=== PATIENT | male | born 1970 | race American Indian/Alaskan Native ===

== ENCOUNTER 2017-06-23 08:56 | Outpatient (CLI) | payer MEDICAID ==
[2017-06-23 09:58] LABS: Albumin 3.8 g/dL (3.9-5); BUN/Creatinine Ratio 7.64; Calcium 8.5 mg/dL (8.4-10.2); Chloride 90.7 mmol/L (98-107); Phosphorous 4.1 mg/dL (2.5-4.5); Potassium 3.5 mmol/L (3.6-5.0)
== END 2017-06-23 08:57 | disposition home or self-care (01) ==
LOC: LAB 08:56
PROVIDERS: ATTEND Internal Medicine Nephrology
DX: I10 Essential (primary) hypertension (principal); E87.1 Hypo-osmolality and hyponatremia; R94.4 Abnormal results of kidney function studies; F17.200 Nicotine dependence, unspecified, uncomplicated
CPT/HCPCS: 36415; 80048; 82040; 82565; 82570; 82575; 84100; 84156

== ENCOUNTER 2018-02-19 10:35 | Observation (INO) | payer MEDICAID ==
[2018-02-19 11:53] LABS: Basophils % (Auto) 0.2 % (0.0-1.8); Eosinophils # (Auto) 0.1 K/mm3 (0.0-0.4); Eosinophils % (Auto) 1.2 % (0.0-4.3); Hematocrit 43.3 % (35.5-45.6); Hemoglobin 14.3 gm/dl (11.8-15.2); Lymphocytes % (Auto) 14.7 % (13.4-35.0); Mean Corpuscular HGB Conc 33 % (32-34); Mean Corpuscular Hemoglobin 29 pg (28-32); Mean Corpuscular Volume 87 fl (84-94); Monocytes # (Auto) 0.4 K/mm3 (0.0-0.8); Monocytes % (Auto) 6.8 % (0.0-7.3); Platelet Count 297 K/mm3 (140-440); Red Blood Count 4.96 M/mm3 (3.65-5.03)
[2018-02-19 12:08] LABS: Albumin 3.8 g/dL (3.9-5); Calcium 8.7 mg/dL (8.4-10.2)
[2018-02-19 12:19] LABS: INR 0.86 (0.87-1.13)
[2018-02-19 13:32] LABS: Bilirubin,Urine NEG (Negative); Blood,Urine NEG (Negative); Color,Urine Yellow (Yellow); Hyaline Casts,Urine 3 /LPF; Mucus,Urine FEW /HPF; Protein,Urine <15 mg/dL mg/dL (Negative); Urobilinogen,Urine < 2.0 mg/dL (<2.0)
--- NOTE | 2018-02-19 13:34 | XRay Report ---
AP CHEST: HISTORY: chest pain AP view of the chest demonstrates a normal mediastinal and cardiac contour with clear lungs and normal bony and soft tissue structures. IMPRESSION: Unremarkable AP chest. No significant change since 02/19/16.
[2018-02-19 13:44] LABS: WBC,Urine < 1.0 /HPF (0.0-6.0)
--- NOTE | 2018-02-19 13:50 | Emergency Department Report ---
ED Chest Pain HPI - General Chief Complaint: Abdominal Pain Stated Complaint: NAUSEA/VOMITING Time Seen by Provider: 02/19/18 11:15 Source: patient, EMS Mode of arrival: Stretcher Limitations: No Limitations, Physical Limitation - History of Present Illness Initial Comments: 47-year-old adult past medical history of hypertension comes in complaining of chest pain. Patient was at [facility] and started to have some nausea vomiting and chest pain . Patient's under no acute distress. Pt denies any nausea vomiting shortness of breath. Denies any fever or chills. MD Complaint: chest pain -: Gradual Onset: during exertion Pain Location: left chest Pain Radiation: none Severity: mild Severity scale (0 -10): 1 Quality: aching Consistency: now resolved Improves With: nothing Worsens With: nothing re: denies: nausea, vomting, diaphoresis, dyspnea, sense of impending doom Other Symptoms: denies: cough, fever, syncope, rash, acid taste in mouth, leg swelling, palpitations, burping, other - Related Data Home Medications Medication Instructions Recorded Confirmed Last Taken AtorvaSTATin [Lipitor] 20 mg PO QHS 02/19/18 02/19/18 02/19/18 Carvedilol [Coreg] 6.25 mg PO BID 02/19/18 02/19/18 02/19/18 Losartan [Cozaar] 50 mg PO QDAY 02/19/18 02/19/18 02/19/18 Triamter/Hctz 37.5-25 mg 1 tab PO QDAY 02/19/18 02/19/18 02/19/18 [Maxzide-25] Allergies Allergy/AdvReac Type Severity Reaction Status Date / Time ibuprofen [From Motrin] Allergy Vomiting Verified 02/19/16 11:35 Heart Score - HEART Score History: Slightly suspicious EKG: Non-specific Age: 45-65 Risk factors: 1-2 risk factors Troponin: < normal limit HEART Score: 3 ED Review of Systems ROS: Stated complaint: NAUSEA/VOMITING Other details as noted in HPI Constitutional: denies: chills, fever Eyes: denies: eye pain, eye discharge, vision change ENT: denies: ear pain, throat pain Respiratory: denies: cough, shortness of breath, wheezing Cardiovascular: chest pain Endocrine: no symptoms reported Gastrointestinal: denies: abdominal pain, nausea, diarrhea Genitourinary: denies: urgency, dysuria Musculoskeletal: denies: back pain, joint swelling, arthralgia Skin: denies: rash, lesions Neurological: denies: headache, weakness, paresthesias Psychiatric: denies: anxiety, depression Hematological/Lymphatic: denies: easy bleeding, easy bruising ED Past Medical Hx - Past Medical History Hx Hypertension: Yes Additional medical history: legally blind - Social History Smoking Status: Current Some Day Smoker Substance Use Type: Alcohol, Prescribed - Medications Home Medications: Home Medications Medication Instructions Recorded Confirmed Last Taken Type AtorvaSTATin [Lipitor] 20 mg PO QHS 02/19/18 02/19/18 02/19/18 History Carvedilol [Coreg] 6.25 mg PO BID 02/19/18 02/19/18 02/19/18 History Losartan [Cozaar] 50 mg PO QDAY 02/19/18 02/19/18 02/19/18 History Triamter/Hctz 37.5-25 mg 1 tab PO QDAY 02/19/18 02/19/18 02/19/18 History [Maxzide-25] ED Physical Exam - General Limitations: Physical Limitation General appearance: alert, in no apparent distress - Head Head exam: Present: atraumatic, normocephalic - Eye Eye exam: Present: normal appearance - ENT ENT exam: Present: mucous membranes moist - Neck Neck exam: Present: normal inspection - Respiratory Respiratory exam: Present: normal lung sounds bilaterally. Absent: respiratory distress - Cardiovascular Cardiovascular Exam: Present: regular rate, normal rhythm. Absent: systolic murmur, diastolic murmur, rubs, gallop - GI/Abdominal GI/Abdominal exam: Present: soft, normal bowel sounds - Rectal Rectal exam: Present: deferred - Extremities Exam Extremities exam: Present: normal inspection - Back Exam Back exam: Present: normal inspection - Neurological Exam Neurological exam: Present: alert, oriented X3 - Psychiatric Psychiatric exam: Present: normal affect, normal mood - Skin Skin exam: Present: warm, dry, intact, normal color. Absent: rash ED Course Vital Signs 02/19/18 02/19/18 02/19/18 10:44 10:46 10:59 Temperature 97.9 F Pulse Rate 101 H 101 H Respiratory 20 22 Rate Blood Pressure 112/66 Blood Pressure 112/66 [Left] O2 Sat by Pulse 91 93 96 Oximetry 02/19/18 02/19/18 02/19/18 11:00 11:16 11:30 Temperature Pulse Rate 106 H 106 H 102 H Respiratory 13 21 21 Rate Blood Pressure 114/68 114/68 106/64 Blood Pressure [Left] O2 Sat by Pulse 94 93 Oximetry 02/19/18 02/19/18 02/19/18 11:42 11:45 12:00 Temperature Pulse Rate 98 H 100 H Respiratory 28 H 14 Rate Blood Pressure 97/69 96/72 Blood Pressure [Left] O2 Sat by Pulse 96 93 97 Oximetry 02/19/18 02/19/18 02/19/18 12:16 12:30 12:45 Temperature Pulse Rate 96 H 100 H 90 Respiratory 14 21 28 H Rate Blood Pressure 95/65 115/70 111/71 Blood Pressure [Left] O2 Sat by Pulse 92 97 91 Oximetry DANN score - Dann Score Age > 65: (0) No Aspirin use within the Past 7 Days: (0) No 3 or more CAD Risk Factors: (0) No 2 or more Angina events in past 24 hrs: (1) Yes Known CAD with more than 50% Stenosis: (0) No Elevated Cardiac Markers: (0) No ST Deviation Greater than 0.5mm: (0) No DANN Score: 1 ED Medical Decision Making - Lab Data Result diagrams: 02/19/18 11:08 02/19/18 11:08 - Medical Decision Making 47-year-old male with past medical history of hypertension was at [facility] and started to having some nausea vomiting chest pain. Patient was brought in for evaluation, trop x 1 is negative chest x-ray is within normal limits. admitted to the hospitalist for further evaluation and treatment Critical care attestation.: If time is entered above; I have spent that time in minutes in the direct care of this critically ill patient, excluding procedure time. ED Disposition Clinical Impression: Acute chest pain Disposition: OP ADMIT IP TO THIS HOSP Is pt being admited?: Yes Does the pt Need Aspirin: Yes Condition: Stable
[2018-02-19] MEDS ORDERED: ASPIRIN PO ONE (14:22)
[2018-02-19] MEDS ORDERED: ASPIRIN ONE (14:50)
--- NOTE | 2018-02-19 17:32 | History and Physical Report ---
History of Present Illness Date of examination: 02/19/18 Date of admission: 02/19/18 13:52 Chief complaint: Chief complaint: Chest pain one day History of present illness: History of Present Illness: 47-year-old -[place] male morbidly obese weighing about 407 pounds with history of hypertension and hyperlipidemia comes in for retrosternal chest pain of one-day duration. 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 Patient did not have a similar episode before. No diaphoresis no palpitations. No shortness of breath. Pain is about 6 scale of 1-10. At the time of my examination was about 2 after morphine. No shortness of breath on exertion. No exacerbating or relieving factors. Chest pain is sharp in nature. No recent travel - Past Medical History Hx Hypertension: Yes Additional medical history: legally blind - Social History Smoking Status: Current Some Day Smoker Substance Use Type: Alcohol, Prescribed Surgical history None except left shoulder repair. Family history Htn - Medications Home Medications: Home Medications Medication Instructions Recorded Confirmed Last Taken Type AtorvaSTATin [Lipitor] 20 mg PO QHS 02/19/18 02/19/18 02/19/18 History Carvedilol [Coreg] 6.25 mg PO BID 02/19/18 02/19/18 02/19/18 History Losartan [Cozaar] 50 mg PO QDAY 02/19/18 02/19/18 02/19/18 History Triamter/Hctz 37.5-25 mg 1 tab PO QDAY 02/19/18 02/19/18 02/19/18 History [Maxzide-25] Review of Systems ROS: Stated complaint: NAUSEA/VOMITING Other details as noted in HPI Constitutional: denies: chills, fever Eyes: denies: eye pain, eye discharge, vision change ENT: denies: ear pain, throat pain Respiratory: denies: cough, shortness of breath, wheezing Cardiovascular: chest pain Endocrine: no symptoms reported Gastrointestinal: denies: abdominal pain, nausea, diarrhea Genitourinary: denies: urgency, dysuria Musculoskeletal: denies: back pain, joint swelling, arthralgia Skin: denies: rash, lesions Neurological: denies: headache, weakness, paresthesias Psychiatric: denies: anxiety, depression Hematological/Lymphatic: denies: easy bleeding, easy bruising Medications and Allergies Allergies Allergy/AdvReac Type Severity Reaction Status Date / Time ibuprofen [From Motrin] Allergy Vomiting Verified 02/19/16 11:35 Home Medications Medication Instructions Recorded Confirmed Last Taken Type AtorvaSTATin [Lipitor] 20 mg PO QHS 02/19/18 02/19/18 02/19/18 History Carvedilol [Coreg] 6.25 mg PO BID 02/19/18 02/19/18 02/19/18 History Losartan [Cozaar] 50 mg PO QDAY 02/19/18 02/19/18 02/19/18 History Triamter/Hctz 37.5-25 mg 1 tab PO QDAY 02/19/18 02/19/18 02/19/18 History [Maxzide-25] Exam - Physical Exam Narrative exam: Lying in bed comfortably. - Constitutional Vitals: Temp Pulse Resp BP Pulse Ox 97.9 F 90 28 H 111/71 91 02/19/18 10:59 02/19/18 12:45 02/19/18 12:45 02/19/18 12:45 02/19/18 12:45 General appearance: Present: no acute distress, well-nourished - EENT Eyes: Present: PERRL ENT: hearing intact, clear oral mucosa - Neck Neck: Present: supple, normal ROM - Respiratory Respiratory effort: normal Respiratory: bilateral: CTA - Cardiovascular Heart rate: 76 Rhythm: regular Heart Sounds: Present: S1 & S2. Absent: rub, click - Extremities Extremities: no ischemia, pulses intact, pulses symmetrical, No edema Peripheral Pulses: within normal limits - Abdominal General gastrointestinal: Present: soft, non-tender, non-distended, normal bowel sounds Male genitourinary: Present: normal - Rectal Rectal Exam: deferred (lower) - Integumentary Integumentary: Present: clear, warm, dry - Musculoskeletal Musculoskeletal: gait normal, strength equal bilaterally - Psychiatric Psychiatric: appropriate mood/affect, intact judgment & insight - Neurologic Neurologic: CNII-XII intact, moves all extremities - Allied Health Allied health notes reviewed: nursing ( cachectic and axilla was given Zithromax on), case management Results - Labs CBC & Chem 7: 02/19/18 11:08 02/19/18 11:08 Labs: Laboratory Last Values WBC 6.5 K/mm3 (4.5-11.0) 02/19/18 11:08 RBC 4.96 M/mm3 (3.65-5.03) 02/19/18 11:08 Hgb 14.3 gm/dl (11.8-15.2) 02/19/18 11:08 Hct 43.3 % (35.5-45.6) 02/19/18 11:08 MCV 87 fl (84-94) 02/19/18 11:08 MCH 29 pg (28-32) 02/19/18 11:08 MCHC 33 % (32-34) 02/19/18 11:08 RDW 14.0 % (13.2-15.2) 02/19/18 11:08 Plt Count 297 K/mm3 (140-440) 02/19/18 11:08 Lymph % (Auto) 14.7 % (13.4-35.0) 02/19/18 11:08 [place] % (Auto) 6.8 % (0.0-7.3) 02/19/18 11:08 Eos % (Auto) 1.2 % (0.0-4.3) 02/19/18 11:08 Baso % (Auto) 0.2 % (0.0-1.8) 02/19/18 11:08 Lymph # 1.0 K/mm3 (1.2-5.4) L 02/19/18 11:08 [place] # 0.4 K/mm3 (0.0-0.8) 02/19/18 11:08 Eos # 0.1 K/mm3 (0.0-0.4) 02/19/18 11:08 Baso # 0.0 K/mm3 (0.0-0.1) 02/19/18 11:08 Seg Neutrophils % 77.1 % (40.0-70.0) H 02/19/18 11:08 Seg Neutrophils # 5.0 K/mm3 (1.8-7.7) 02/19/18 11:08 PT 12.1 Sec. (12.2-14.9) L 02/19/18 11:08 INR 0.86 (0.87-1.13) L 02/19/18 11:08 Sodium 136 mmol/L (137-145) L 02/19/18 11:08 Potassium 3.6 mmol/L (3.6-5.0) 02/19/18 11:08 Chloride 97.5 mmol/L (98-107) L 02/19/18 11:08 Carbon Dioxide 23 mmol/L (22-30) 02/19/18 11:08 Anion Gap 19 mmol/L 02/19/18 11:08 BUN 15 mg/dL (9-20) 02/19/18 11:08 Creatinine 1.8 mg/dL (0.8-1.5) H 02/19/18 11:08 Estimated GFR 49 ml/min 02/19/18 11:08 BUN/Creatinine Ratio 8 % 02/19/18 11:08 Glucose 140 mg/dL (75-100) H 02/19/18 11:08 Calcium 8.7 mg/dL (8.4-10.2) 02/19/18 11:08 Total Bilirubin 0.30 mg/dL (0.1-1.2) 02/19/18 11:08 AST 14 units/L (5-40) 02/19/18 11:08 ALT 16 units/L (7-56) 02/19/18 11:08 Alkaline Phosphatase 86 units/L (35-129) 02/19/18 11:08 Total Creatine Kinase 216 units/L (55-170) H 02/19/18 11:08 Troponin T < 0.010 ng/mL (0.00-0.029) 02/19/18 11:08 NT-Pro-B Natriuret Pep 19.08 pg/mL (0-450) 02/19/18 11:08 Total Protein 6.8 g/dL (6.3-8.2) 02/19/18 11:08 Albumin 3.8 g/dL (3.9-5) L 02/19/18 11:08 Albumin/Globulin Ratio 1.3 % 02/19/18 11:08 Urine Color Yellow (Yellow) 02/19/18 12:32 Urine Turbidity Clear (Clear) 02/19/18 12:32 Urine pH 6.0 (5.0-7.0) 02/19/18 12:32 Ur Specific [place] 1.010 (1.003-1.030) 02/19/18 12:32 Urine Protein <15 mg/dl mg/dL (Negative) 02/19/18 12:32 Urine Glucose (UA) Neg mg/dL (Negative) 02/19/18 12:32 Urine Ketones Neg mg/dL (Negative) 02/19/18 12:32 Urine Blood Neg (Negative) 02/19/18 12:32 Urine Nitrite Neg (Negative) 02/19/18 12:32 Urine Bilirubin Neg (Negative) 02/19/18 12:32 Urine Urobilinogen < 2.0 mg/dL (<2.0) 02/19/18 12:32 Ur Leukocyte Esterase Neg (Negative) 02/19/18 12:32 Urine WBC (Auto) < 1.0 /HPF (0.0-6.0) 02/19/18 12:32 Urine RBC (Auto) 4.0 /HPF (0.0-6.0) 02/19/18 12:32 Hyaline Casts 3 /LPF 02/19/18 12:32 Urine Mucus Few /HPF 02/19/18 12:32 - Imaging and Cardiology EKG: report reviewed (normal sinus rhythm with low-voltage heart rate of 83/m) Chest x-ray: report reviewed Imaging and Cardiology: Chest x-ray Unremarkable AP chest No infiltrates Assessment and Plan Advance Directives: Yes (full code) VTE prophylaxis?: Chemical Plan of care discussed with patient/family: Yes - Patient Problems (1) Acute chest pain Current Visit: Yes Status: Acute Plan to address problem: Chest pain workup. Serial cardiac enzymes and Lexiscan in the morning. Patient may not be able to get the stress test because of his overweight. Patient weighs about 407 pounds. Patient may have reflux esophagitis given his weight. Patient is started on Zantac 150 twice a day. Costochondritis ruled out (2) BRODIE (acute kidney injury) Current Visit: No Status: Acute Plan to address problem: Creatinine is 1.8 IV fluids. Vasomotor nephropathy (3) Hypertension Current Visit: Yes Status: Chronic Qualifiers: Hypertension type: essential hypertension Qualified Code(s): I10 - Essential (primary) hypertension Plan to address problem: Continue antihypertensives in the form of losartan and Coreg . We will hold hydrochlorothiazide and triamterene because of increased creatinine which may be causing volume depletion (4) Hyperlipidemia Current Visit: Yes Status: Chronic Qualifiers: Hyperlipidemia type: mixed hyperlipidemia Qualified Code(s): E78.2 - Mixed hyperlipidemia Plan to address problem: Continue statins (5) Morbidly obese Current Visit: No Status: Chronic Plan to address problem: Patient may need bariatric surgery. Patient counseled about his weight and the need to do exercise. Also to avoid junk food and portion control (6) Hyponatremia Current Visit: Yes Status: Acute Plan to address problem: Mild. May correct with IV fluids. (7) DVT prophylaxis Current Visit: Yes Status: Acute Plan to address problem: On heparin
[2018-02-19] MEDS ORDERED: ZOFRAN IV PRN (19:17)
[2018-02-19] MEDS ORDERED: AMBIEN PO PRN (19:17)
[2018-02-19] MEDS ORDERED: MORPHINE IV PRN (19:17)
[2018-02-19] MEDS ORDERED: SODIUM CHLORIDE FLUSH SYRINGE 10 ML IV PRN (19:17)
[2018-02-19] MEDS ORDERED: PERCOCET 5/325 PO PRN (19:17)
[2018-02-19] MEDS ORDERED: TYLENOL PO PRN (19:17)
[2018-02-19] MEDS ORDERED: NACL 0.9% 1000 ML 1,000 ML IV SCH (20:00)
[2018-02-19] MEDS: COZAAR PO SCH (23:21)
[2018-02-19] MEDS: COREG PO SCH (23:21)
[2018-02-19] MEDS: HEPARIN SUB-Q SCH (23:21)
[2018-02-19] MEDS: PEPCID PO SCH (23:22)
[2018-02-19] MEDS: SODIUM CHLORIDE FLUSH SYRINGE 10 ML IV SCH (23:23)
[2018-02-20 02:34] LABS: Basophils % (Auto) 0.3 % (0.0-1.8); Eosinophils # (Auto) 0.1 K/mm3 (0.0-0.4); Eosinophils % (Auto) 1.3 % (0.0-4.3); Hematocrit 44.1 % (35.5-45.6); Hemoglobin 14.6 gm/dl (11.8-15.2); Lymphocytes # (Auto) 1.5 K/mm3 (1.2-5.4); Lymphocytes % (Auto) 19.3 % (13.4-35.0); Mean Corpuscular HGB Conc 33 % (32-34); Mean Corpuscular Hemoglobin 28 pg (28-32); Mean Corpuscular Volume 86 fl (84-94); Monocytes # (Auto) 0.8 K/mm3 (0.0-0.8); Monocytes % (Auto) 9.9 % (0.0-7.3); Platelet Count 290 K/mm3 (140-440); Red Blood Count 5.14 M/mm3 (3.65-5.03); Red Cell Distribution Width 14.1 % (13.2-15.2)
[2018-02-20 03:00] LABS: Albumin 3.8 g/dL (3.9-5); Calcium 8.3 mg/dL (8.4-10.2)
[2018-02-20 04:56] VITALS: BP 128/92
[2018-02-20] MEDS: COREG PO SCH (09:05)
[2018-02-20] MEDS: HEPARIN SUB-Q SCH (09:05)
[2018-02-20] MEDS: COZAAR PO SCH (09:05)
[2018-02-20] MEDS: PEPCID PO SCH (09:06)
[2018-02-20] MEDS: SODIUM CHLORIDE FLUSH SYRINGE 10 ML IV SCH (09:07)
--- NOTE | 2018-02-20 20:19 | Discharge Summary ---
Providers - Providers Date of Admission: 02/19/18 13:52 Date of discharge: 02/20/18 Attending physician: LEIGHA BLANCO Primary care physician: CLINICAL IMMUNOLOGIST Hospitalization Reason for admission: chest pain Condition: Stable Pertinent studies: Chest x-ray; no acute abnormality noted Hospital course: Moderately obese 47-year-old -[place] male patient was admitted chest pain of one-day duration Patient was initially evaluated admitted to the hospital symptomatically managed , scheduled for stress test However PET stress test patient wanted to leave AGAINST MEDICAL ADVICE Medicine consequences of leaving AGAINST MEDICAL ADVICE was explained to the patient by the health care providers Patient verbalized understanding and still insisted on leaving AGAINST MEDICAL ADVICE, signing the necessity documents Patient was strongly advised to seek medical attention should he have recurrent chest pain Also advised to see his primary care physician as needed Discharge diagnosis; Chest pain to rule out acute coronary syndrome Hypertension Ongoing tobacco use Morbid obesity; BMI 49.8 Legally blind Dyslipidemia Disposition: DC-07 LEFT AGAINST MED ADVICE Time spent for discharge: 31 min Core Measure Documentation - Palliative Care Palliative Care/ Comfort Measures: Not Applicable - Core Measures Any of the following diagnoses?: none Exam - Physical Exam Narrative exam: Left AMA - Constitutional Vitals: Temp Pulse Resp BP Pulse Ox 97.9 F 105 H 18 128/92 96 02/20/18 04:29 02/20/18 04:29 02/20/18 04:29 02/20/18 04:29 02/20/18 04:29 Plan Additional Instructions: Left AGAINST MEDICAL ADVICE Follow up with: PHIL CONTRERAS MD [Primary Care Provider] - 3-5 Days Forms: AMA Form
== END 2018-02-20 11:04 | disposition left against medical advice (07) ==
LOC: ED 10:35 → 4A 13:52
PROVIDERS: ADMIT Internal Medicine; ATTEND Internal Medicine
DX: R07.89 Other chest pain (principal); E66.01 Morbid (severe) obesity due to excess calories; I10 Essential (primary) hypertension; E78.5 Hyperlipidemia, unspecified; H54.7 Unspecified visual loss; F17.200 Nicotine dependence, unspecified, uncomplicated; E87.1 Hypo-osmolality and hyponatremia; N17.9 Acute kidney failure, unspecified; Z68.42 Body mass index [BMI] 45.0-49.9, adult; Z53.21 Procedure and treatment not carried out due to patient leaving prior to being seen by health care provider
CPT/HCPCS: 36415; 71045; 80053; 81001; 82550; 83036; 83880; 84484; 85025; 85610; 93005; 93010; 96372; 96374; 99285; A9270; G0378; J1644; J2270; J7030

== ENCOUNTER 2019-03-03 16:53 | Emergency (ER) | payer MEDICAID ==
[2019-03-03 17:02] VITALS: BP 166/109
--- NOTE | 2019-03-03 17:02 | Emergency Department Report ---
Blank Doc - Documentation Documentation: This is a 48-year-old male that productive cough. Also stated has some nausea vomiting. This initial assessment/diagnostic orders/clinical plan/treatment(s) is/are subject to change based on patient's health status, clinical progression and re- assessment by fellow clinical providers in the ED. Further treatment and workup at subsequent clinical providers discretion. Patient/guardians urged not to elope from the ED as their condition may be serious if not clinically assessed and managed. Initial orders include: 1- Patient sent to [facility] for further evaluation and treatment 2- labs 3- CXR
[2019-03-03 18:00] LABS: Basophils % (Auto) 0.2 % (0.0-1.8); Eosinophils # (Auto) 0.1 K/mm3 (0.0-0.4); Eosinophils % (Auto) 0.5 % (0.0-4.3); Hematocrit 42.5 % (35.5-45.6); Lymphocytes # (Auto) 1.2 K/mm3 (1.2-5.4); Mean Corpuscular HGB Conc 33 % (32-34); Mean Corpuscular Volume 90 fl (84-94); Monocytes # (Auto) 1.1 K/mm3 (0.0-0.8); Monocytes % (Auto) 7.8 % (0.0-7.3); Platelet Count 278 K/mm3 (140-440); Red Blood Count 4.74 M/mm3 (3.65-5.03); Red Cell Distribution Width 14.6 % (13.2-15.2)
[2019-03-03 18:20] LABS: Alanine Aminotransferase 14 units/L (7-56); Albumin 3.9 g/dL (3.9-5); BUN/Creatinine Ratio 6; Blood Urea Nitrogen 10 mg/dL (9-20); Calcium 9.2 mg/dL (8.4-10.2); Hemolysis Index 12
[2019-03-03 18:46] LABS: Bilirubin,Direct < 0.2 mg/dL (0-0.2)
--- NOTE | 2019-03-03 19:12 | XRay Report ---
PROCEDURE: XR CHEST ROUTINE 2V TECHNIQUE: PA and lateral views of the chest HISTORY: cough COMPARISONS: 02/19/2018 FINDINGS: Stable cardiac silhouette. There is shallow inspiration. Mildly prominent central vessels. Limited ev aluation of the lung bases due to patient body habitus. No definitive infiltrates are identified. IMPRESSION: Shallow ulceration. No definitive infiltrates. Limited evaluation of the lung bases. This document is electronically signed by Dominique Valderrama MD., March 03 2019 07:10:23 PM ET
--- NOTE | 2019-03-03 20:25 | Emergency Department Report ---
ED General Adult HPI - General Chief complaint: Nausea/Vomiting/Diarrhea Stated complaint: NAUSEA Time Seen by Provider: 03/03/19 17:00 Source: patient, EMS Mode of arrival: Wheelchair Limitations: Other - History of Present Illness Initial comments: 48-year-old obese -[place] male with a past medical history hypertension, hypokalemia presents to the emergency department complaining of a few day a few hour history of nausea and vomiting. States he had nausea for about the last 8 hours and had one episode of vomiting after trying to consume a hamburger called by his nursing staff. States he was around family members who had a virus, cough and cold. States that he did have some cough and congestion and coryza as well. Radiation: non-radiation Consistency: constant Improves with: none Worsens with: none - Related Data Home Medications Medication Instructions Recorded Confirmed Last Taken AtorvaSTATin [Lipitor] 20 mg PO QHS 02/19/18 02/19/18 02/19/18 Carvedilol [Coreg] 6.25 mg PO BID 02/19/18 02/19/18 02/19/18 Losartan [Cozaar] 50 mg PO QDAY 02/19/18 02/19/18 02/19/18 Triamter/Hctz 37.5-25 mg 1 tab PO QDAY 02/19/18 02/19/18 02/19/18 [Maxzide-25] Previous Rx's Medication Instructions Recorded Last Taken Type Benzonatate [Tessalon Perles] 100 mg PO Q8HR #14 capsule 03/03/19 Unknown Rx Ondansetron [Zofran ODT TAB] 8 mg PO Q12HR #10 tab.rapdis 03/03/19 Unknown Rx Allergies Allergy/AdvReac Type Severity Reaction Status Date / Time acetaminophen [From Tylenol] Allergy Vomiting Verified 03/03/19 16:56 ibuprofen [From Motrin] Allergy Vomiting Verified 02/19/16 11:35 ED Review of Systems ROS: Stated complaint: NAUSEA Other details as noted in HPI Constitutional: denies: chills, fever Eyes: denies: eye pain, eye discharge, vision change ENT: denies: ear pain, throat pain Respiratory: denies: cough, shortness of breath, wheezing Cardiovascular: denies: chest pain, palpitations Endocrine: no symptoms reported Gastrointestinal: denies: abdominal pain, nausea, diarrhea Genitourinary: denies: urgency, dysuria Musculoskeletal: denies: back pain, joint swelling, arthralgia Skin: denies: rash, lesions Neurological: denies: headache, weakness, paresthesias Psychiatric: denies: anxiety, depression Hematological/Lymphatic: denies: easy bleeding, easy bruising ED Past Medical Hx - Past Medical History Hx Hypertension: Yes Hx Congestive Heart Failure: No Hx Diabetes: No Hx Asthma: No Hx COPD: No Hx HIV: No Additional medical history: legally blind - Surgical History Past Surgical History?: No - Social History Smoking Status: Current Some Day Smoker Substance Use Type: None - Medications Home Medications: Home Medications Medication Instructions Recorded Confirmed Last Taken Type AtorvaSTATin [Lipitor] 20 mg PO QHS 02/19/18 02/19/18 02/19/18 History Carvedilol [Coreg] 6.25 mg PO BID 02/19/18 02/19/18 02/19/18 History Losartan [Cozaar] 50 mg PO QDAY 02/19/18 02/19/18 02/19/18 History Triamter/Hctz 37.5-25 mg 1 tab PO QDAY 02/19/18 02/19/18 02/19/18 History [Maxzide-25] Benzonatate [Tessalon Perles] 100 mg PO Q8HR #14 capsule 03/03/19 Unknown Rx Ondansetron [Zofran ODT TAB] 8 mg PO Q12HR #10 tab.rapdis 03/03/19 Unknown Rx ED Physical Exam - General Limitations: Other ED Course Vital Signs 03/03/19 17:00 Temperature 98.3 F Pulse Rate 122 H Respiratory 24 Rate Blood Pressure 166/109 O2 Sat by Pulse 97 Oximetry - Reevaluation(s) Reevaluation #1: 03/03/19 21:28 48-year-old Sudanese male with nausea, vomiting, came in tachycardic heart rate of 122, heart rate the or tingling. On reevaluation. Discussed with the patient the need to do IV fluids due to his history of dehydration, current nausea, vomiting, a slightly elevated's creatinine, however, he is refusing any further testing or treatment. States he just would like prescriptions to go home. States that he does think he feels fine does want to get treated for the cold. Currently denying shortness of breath and chest pain. ED Medical Decision Making - Lab Data Result diagrams: 03/03/19 17:22 03/03/19 17:22 - Radiology Data Radiology results: report reviewed Critical care attestation.: If time is entered above; I have spent that time in minutes in the direct care of this critically ill patient, excluding procedure time. ED Disposition Clinical Impression: Nausea, Vomiting, Coryza, Cough Disposition: - TO HOME OR SELFCARE Is pt being admited?: No Does the pt Need Aspirin: No Condition: Undetermined Instructions: Dehydration (ED), Upper Respiratory Infection (ED), Acute Nausea and Vomiting (ED), Cold Symptoms (ED) Additional Instructions: 3. Return to the emergency department should Mary's producing any worsening inure coughing, nausea, vomiting. Also return should she develop any fever, abdominal pain, chest pain, lower extremity swelling or any suggestion that her condition is worsening Prescriptions: Benzonatate [Tessalon Perles] 100 mg PO Q8HR #14 capsule Ondansetron [Zofran ODT TAB] 8 mg PO Q12HR #10 tab.[email or web address] Referrals: JUAN MANUEL WOO MD [Primary Care Provider] - 3-5 Days
[2019-03-03] MEDS ORDERED: NACL 0.9% 1000 ML 1,000 ML IV ONE (20:50)
[2019-03-03 21:04] LABS: Bilirubin,Urine NEG (Negative); Blood,Urine NEG (Negative); Color,Urine Yellow (Yellow); Mucus,Urine FEW /HPF; Protein,Urine <15 mg/dL mg/dL (Negative); Urobilinogen,Urine < 2.0 mg/dL (<2.0)
== END 2019-03-03 21:30 | disposition home or self-care (01) ==
LOC: ED 16:53
DX: R11.2 Nausea with vomiting, unspecified (principal); J00 Acute nasopharyngitis [common cold]; I10 Essential (primary) hypertension; F17.200 Nicotine dependence, unspecified, uncomplicated; Z88.6 Allergy status to analgesic agent
CPT/HCPCS: 36415; 71046; 80048; 80076; 81001; 83690; 85025

== ENCOUNTER 2019-03-20 03:28 | Inpatient (IN) | payer MEDICAID ==
[2019-03-20] MEDS ORDERED: ASPIRIN PO ONE (03:40)
[2019-03-20 04:14] LABS: Basophils # (Auto) 0.1 K/mm3 (0.0-0.1); Basophils % (Auto) 0.5 % (0.0-1.8); Eosinophils # (Auto) 0.1 K/mm3 (0.0-0.4); Eosinophils % (Auto) 0.8 % (0.0-4.3); Hematocrit 42.6 % (35.5-45.6); Hemoglobin 13.9 gm/dl (11.8-15.2); Lymphocytes # (Auto) 2.2 K/mm3 (1.2-5.4); Lymphocytes % (Auto) 20.1 % (13.4-35.0); Mean Corpuscular HGB Conc 33 % (32-34); Mean Corpuscular Volume 91 fl (84-94); Monocytes # (Auto) 0.8 K/mm3 (0.0-0.8); Monocytes % (Auto) 7.3 % (0.0-7.3); Platelet Count 296 K/mm3 (140-440); Red Blood Count 4.69 M/mm3 (3.65-5.03); Red Cell Distribution Width 14.9 % (13.2-15.2)
--- NOTE | 2019-03-20 04:22 | XRay Report ---
PROCEDURE: XR CHEST 1V AP TECHNIQUE: Chest radiograph single view. HISTORY: Chest Pain COMPARISONS: 03/12/2019 . FINDINGS: Heart: Normal. Mediastinum/Vessels: Normal. Lungs/Pleural space: Mild vascular congestion. Bony thorax: No acute osseous abnormality. Life support devices: None. IMPRESSION: Mild vascular congestion. No consolidation or effusion.. This document is electronically signed by Leticia Hernandes DO., March 20 2019 04:20:25 AM ET
[2019-03-20 04:37] LABS: BUN/Creatinine Ratio 13; Blood Urea Nitrogen 24 mg/dL (9-20); Calcium 8.7 mg/dL (8.4-10.2); Hemolysis Index 9
[2019-03-20] MEDS ORDERED: MORPHINE IV ONE (05:01)
--- NOTE | 2019-03-20 06:16 | Emergency Department Report ---
ED Abdominal Pain HPI - General Chief Complaint: Chest Pain Stated Complaint: BACK/CHEST/ARM PAIN Time Seen by Provider: 03/20/19 06:14 Source: patient Mode of arrival: Stretcher Limitations: No Limitations - History of Present Illness Initial Comments: 38-year-old man who is frequently visiting the emergency department. A blood pressure measurement was somewhat elevated but improved. An antihypertensive medication listed on his current medication sheet. His triage note states that he had chest pain and left back pain for 2 weeks. He is telling me his arms and legs hurt sides of her lower that he has chronic back pain. He is not complaining of chest pain at all. He does not complain of sweating shortness breath nausea or vomiting. He apparently has been largely utilizing [facility] this is primary care provider as he has been here multiple times in the last month. However, he does have a primary care provider he states. This is his third visit one month. He cannot identify a kidney specialist although he has chronic kidney disease. He has seen a air conditioning specialist in the past however. He is not reporting any active pain at this time. Initially he tells me that he was taking steroids and that his primary care doctor to him off of that. His current medication list includes five-day course of prednisone for URI. He was also given azithromycin on 03/13/2019 and albuterol inhaler. Does not complain of any shortness of breath. He denies any neurological changes. He states he is simply here because he is aching all over. He does not complain of any radiating or pleuritic chest pain. Apparently the patient has been seen and admitted here for cardiology evaluation. It was not completed and he signed out AGAINST MEDICAL ADVICE. Patient tells me he's never had an exercise stress test. MD Complaint: other (total body pain joints muscles) -: Gradual, week(s) Location: diffuse Severity: mild, moderate Quality: aching Consistency: intermittent Improves With: nothing Worsens With: nothing Context: other (on a statin) Associated Symptoms: nausea, vomiting, diarrhea - Related Data Home Medications Medication Instructions Recorded Confirmed Last Taken AtorvaSTATin [Lipitor] 20 mg PO QHS 02/19/18 02/19/18 02/19/18 Carvedilol [Coreg] 6.25 mg PO BID 02/19/18 02/19/18 02/19/18 Losartan [Cozaar] 50 mg PO QDAY 02/19/18 02/19/18 02/19/18 Triamter/Hctz 37.5-25 mg 1 tab PO QDAY 02/19/18 02/19/18 02/19/18 [Maxzide-25] Previous Rx's Medication Instructions Recorded Last Taken Type Benzonatate [Tessalon Perles] 100 mg PO Q8HR #14 capsule 03/03/19 Unknown Rx Ondansetron [Zofran ODT TAB] 8 mg PO Q12HR #10 tab.rapdis 03/03/19 Unknown Rx ALBUTEROL Inhaler(NF) [VENTOLIN 2 puff IH Q4H #1 inha 03/13/19 Unknown Rx Inhaler(NF)] Azithromycin [Zithromax Z-DAREN] 250 mg PO DAILY #6 tab 03/13/19 Unknown Rx Benzonatate [Tessalon Perles] 100 mg PO Q8HR #30 capsule 03/13/19 Unknown Rx predniSONE [Deltasone] 40 mg PO QDAY 5 Days #10 tab 03/13/19 Unknown Rx Allergies Allergy/AdvReac Type Severity Reaction Status Date / Time acetaminophen [From Tylenol] Allergy Vomiting Verified 03/20/19 06:48 ibuprofen [From Motrin] Allergy Vomiting Verified 03/20/19 06:48 ED Review of Systems ROS: Stated complaint: BACK/CHEST/ARM PAIN Other details as noted in HPI Constitutional: denies: chills, fever Eyes: denies: eye pain, eye discharge, vision change ENT: denies: ear pain, throat pain Respiratory: denies: cough, shortness of breath, wheezing Cardiovascular: chest pain (variable history). denies: palpitations Endocrine: no symptoms reported Gastrointestinal: nausea, vomiting, diarrhea. denies: abdominal pain Genitourinary: denies: urgency, dysuria Musculoskeletal: arthralgia, myalgia. denies: back pain Skin: denies: rash, lesions Neurological: denies: headache, weakness, paresthesias Psychiatric: denies: anxiety, depression Hematological/Lymphatic: denies: easy bleeding, easy bruising ED Past Medical Hx - Past Medical History Previous Medical History?: Yes Hx Hypertension: Yes Hx Congestive Heart Failure: No Hx Diabetes: No Hx Asthma: No Hx COPD: No Hx HIV: No Additional medical history: legally blind, MORBID OBESITY, High Cholesterol - Surgical History Past Surgical History?: No - Social History Smoking Status: Current Some Day Smoker Substance Use Type: None - Medications Home Medications: Home Medications Medication Instructions Recorded Confirmed Last Taken Type AtorvaSTATin [Lipitor] 20 mg PO QHS 02/19/18 02/19/18 02/19/18 History Carvedilol [Coreg] 6.25 mg PO BID 02/19/18 02/19/18 02/19/18 History Losartan [Cozaar] 50 mg PO QDAY 02/19/18 02/19/18 02/19/18 History Triamter/Hctz 37.5-25 mg 1 tab PO QDAY 02/19/18 02/19/18 02/19/18 History [Maxzide-25] Benzonatate [Tessalon Perles] 100 mg PO Q8HR #14 capsule 03/03/19 Unknown Rx Ondansetron [Zofran ODT TAB] 8 mg PO Q12HR #10 tab.rapdis 03/03/19 Unknown Rx ALBUTEROL Inhaler(NF) [VENTOLIN 2 puff IH Q4H #1 inha 03/13/19 Unknown Rx Inhaler(NF)] Azithromycin [Zithromax Z-DAREN] 250 mg PO DAILY #6 tab 03/13/19 Unknown Rx Benzonatate [Tessalon Perles] 100 mg PO Q8HR #30 capsule 03/13/19 Unknown Rx predniSONE [Deltasone] 40 mg PO QDAY 5 Days #10 tab 03/13/19 Unknown Rx ED Physical Exam - General Limitations: No Limitations ED Course Vital Signs 03/20/19 03/20/19 03/20/19 02:36 03:35 04:38 Temperature 97.6 F Pulse Rate 49 L 100 H Respiratory 25 H 16 19 Rate Blood Pressure 131/55 123/81 Blood Pressure [Left] O2 Sat by Pulse 100 98 97 Oximetry 03/20/19 03/20/19 03/20/19 05:00 05:15 05:18 Temperature Pulse Rate 106 H 91 H Respiratory 23 28 H 18 Rate Blood Pressure 119/70 144/63 Blood Pressure [Left] O2 Sat by Pulse 95 98 Oximetry 03/20/19 03/20/19 03/20/19 05:31 06:00 06:31 Temperature Pulse Rate 87 90 Respiratory 15 15 Rate Blood Pressure 109/56 127/74 107/84 Blood Pressure [Left] O2 Sat by Pulse 93 95 96 Oximetry 03/20/19 03/20/19 03/20/19 06:56 07:00 07:14 Temperature 97.9 F Pulse Rate 95 H 102 H 87 Respiratory 20 20 Rate Blood Pressure 133/62 Blood Pressure 128/57 [Left] O2 Sat by Pulse 96 95 Oximetry 03/20/19 03/20/19 03/20/19 07:30 08:01 08:31 Temperature Pulse Rate 98 H 89 Respiratory 18 17 Rate Blood Pressure 114/74 109/53 126/71 Blood Pressure [Left] O2 Sat by Pulse 96 96 96 Oximetry - Reevaluation(s) Reevaluation #1: Patient does complain of some persistent chest pain. His proBNP was 15. His however his x-ray did show some vascular congestion. His CK was slightly elevated. He is substantially obese. He does have risk factors for coronary artery disease. He is agreeable to be admitted now for further evaluation of his chest pain, worsening renal insufficiency, elevated CK. 03/20/19 09:20 ED Medical Decision Making - Lab Data Result diagrams: 03/20/19 03:51 03/20/19 03:51 Laboratory Results - last 24 hr 03/20/19 03/20/19 03/20/19 03:51 03:51 05:05 WBC 11.0 RBC 4.69 Hgb 13.9 Hct 42.6 MCV 91 MCH 30 MCHC 33 RDW 14.9 Plt Count 296 Lymph % (Auto) 20.1 [place] % (Auto) 7.3 Eos % (Auto) 0.8 Baso % (Auto) 0.5 Lymph # 2.2 [place] # 0.8 Eos # 0.1 Baso # 0.1 Seg Neutrophils % 71.3 H Seg Neutrophils # 7.8 H D-Dimer 136.45 Sodium 140 Potassium 4.2 Chloride 101.4 Carbon Dioxide 25 Anion Gap 18 BUN 24 H Creatinine 1.9 H Estimated GFR 46 BUN/Creatinine Ratio 13 Glucose 167 H Calcium 8.7 Troponin T < 0.010 NT-Pro-B Natriuret Pep 03/20/19 05:05 WBC RBC Hgb Hct MCV MCH MCHC RDW Plt Count Lymph % (Auto) [place] % (Auto) Eos % (Auto) Baso % (Auto) Lymph # [place] # Eos # Baso # Seg Neutrophils % Seg Neutrophils # D-Dimer Sodium Potassium Chloride Carbon Dioxide Anion Gap BUN Creatinine Estimated GFR BUN/Creatinine Ratio Glucose Calcium Troponin T NT-Pro-B Natriuret Pep 15.88 Laboratory Results - last 24 hr 03/20/19 03/20/19 03/20/19 03:51 03:51 05:05 WBC 11.0 RBC 4.69 Hgb 13.9 Hct 42.6 MCV 91 MCH 30 MCHC 33 RDW 14.9 Plt Count 296 Lymph % (Auto) 20.1 [place] % (Auto) 7.3 Eos % (Auto) 0.8 Baso % (Auto) 0.5 Lymph # 2.2 [place] # 0.8 Eos # 0.1 Baso # 0.1 Seg Neutrophils % 71.3 H Seg Neutrophils # 7.8 H D-Dimer 136.45 Sodium 140 Potassium 4.2 Chloride 101.4 Carbon Dioxide 25 Anion Gap 18 BUN 24 H Creatinine 1.9 H Estimated GFR 46 BUN/Creatinine Ratio 13 Glucose 167 H Calcium 8.7 Troponin T < 0.010 NT-Pro-B Natriuret Pep 03/20/19 03/20/19 05:05 06:35 WBC RBC Hgb Hct MCV MCH MCHC RDW Plt Count Lymph % (Auto) [place] % (Auto) Eos % (Auto) Baso % (Auto) Lymph # [place] # Eos # Baso # Seg Neutrophils % Seg Neutrophils # D-Dimer Sodium Potassium Chloride Carbon Dioxide Anion Gap BUN Creatinine Estimated GFR BUN/Creatinine Ratio Glucose Calcium Troponin T < 0.010 NT-Pro-B Natriuret Pep 15.88 Laboratory Results - last 24 hr 03/20/19 03/20/19 03/20/19 03:51 03:51 05:05 WBC 11.0 RBC 4.69 Hgb 13.9 Hct 42.6 MCV 91 MCH 30 MCHC 33 RDW 14.9 Plt Count 296 Lymph % (Auto) 20.1 [place] % (Auto) 7.3 Eos % (Auto) 0.8 Baso % (Auto) 0.5 Lymph # 2.2 [place] # 0.8 Eos # 0.1 Baso # 0.1 Seg Neutrophils % 71.3 H Seg Neutrophils # 7.8 H D-Dimer 136.45 Sodium 140 Potassium 4.2 Chloride 101.4 Carbon Dioxide 25 Anion Gap 18 BUN 24 H Creatinine 1.9 H Estimated GFR 46 BUN/Creatinine Ratio 13 Glucose 167 H Calcium 8.7 Total Creatine Kinase CK-MB (CK-2) CK-MB (CK-2) Rel Index Troponin T < 0.010 NT-Pro-B Natriuret Pep 03/20/19 03/20/19 03/20/19 05:05 06:35 06:35 WBC RBC Hgb Hct MCV MCH MCHC RDW Plt Count Lymph % (Auto) [place] % (Auto) Eos % (Auto) Baso % (Auto) Lymph # [place] # Eos # Baso # Seg Neutrophils % Seg Neutrophils # D-Dimer Sodium Potassium Chloride Carbon Dioxide Anion Gap BUN Creatinine Estimated GFR BUN/Creatinine Ratio Glucose Calcium Total Creatine Kinase 622 H CK-MB (CK-2) 4.6 H CK-MB (CK-2) Rel Index 0.7 Troponin T < 0.010 NT-Pro-B Natriuret Pep 15.88 - EKG Data -: EKG Interpreted by Me EKG shows normal: sinus rhythm, axis, intervals, QRS complexes, ST-T waves Rate: normal - EKG Data Interpretation: other (somewhat lower voltage. Probably related to the patient's obesity) - Radiology Data Radiology results: report reviewed (mild vascular congestion) Critical care attestation.: If time is entered above; I have spent that time in minutes in the direct care of this critically ill patient, excluding procedure time. ED Disposition Clinical Impression: Acute on chronic renal insufficiency, Elevated CK, Morbid obesity Chest pain Qualifiers: Chest pain type: unspecified Qualified Code(s): R07.9 - Chest pain, unspecified Disposition: OP ADMIT IP TO THIS HOSP Is pt being admited?: Yes Does the pt Need Aspirin: Yes Condition: Stable Instructions: Chest Pain (ED) Referrals: JUAN MANUEL WOO MD [Primary Care Provider] - 3-5 Days Time of Disposition: 09:24
[2019-03-20] MEDS ORDERED: NACL 0.9% 1000 ML 1,000 ML IV ONE (06:37)
[2019-03-20 08:41] LABS: Creatine Kinase MB 4.6 ng/mL (0.0-4.0)
[2019-03-20 10:00] LABS: Bacteria,Urine 1+ /HPF (Negative); Bilirubin,Urine NEG (Negative); Blood,Urine NEG (Negative); Color,Urine Straw (Yellow); Protein,Urine <15 mg/dL mg/dL (Negative); Urobilinogen,Urine < 2.0 mg/dL (<2.0); WBC,Urine < 1.0 /HPF (0.0-6.0)
[2019-03-20 10:04] LABS: Amphetamine Screen,Urine PRESUMPTIVE NEGATIVE; Benzodiazepines Screen,Urine PRESUMPTIVE NEGATIVE; Cannabinoid Screen,Urine PRESUMPTIVE NEGATIVE; Cocaine Screen,Urine PRESUMPTIVE NEGATIVE; Methadone Screen,Urine PRESUMPTIVE NEGATIVE; Opiate Screen,Urine PRESUMPTIVE NEGATIVE
--- NOTE | 2019-03-20 10:52 | History and Physical Report ---
History of Present Illness Date of examination: 03/20/19 Date of admission: 03/20/19 09:37 Chief complaint: Chest pain, no back pain History of present illness: 48-year-old morbidly with his -[place] male patient with significant past medical history of hypertension Dyslipidemia, morbid obesity ongoing tobacco use presented to the emergency room with history of intermittent chest pain For the last 2 weeks worse since yesterday. Patient had negative stress test 3 years ago Denice is chest pain between 5-6/10 at its peak, not associated with nausea vomiting or diaphoresis Intermittent lasts about 5-7 minutes, denies orthopnea paroxysmal nocturnal dyspnea First set of cardiac enzymes negative, EKG no acute ST-T changes Past History Past Medical History: hypertension, hyperlipidemia, other (chronic kidney disease stage III, legally blind) Social history: lives with family, smoking, full code. denies: alcohol abuse, prescription drug abuse Family history: hypertension Medications and Allergies Allergies Allergy/AdvReac Type Severity Reaction Status Date / Time acetaminophen [From Tylenol] Allergy Vomiting Verified 03/20/19 06:48 ibuprofen [From Motrin] Allergy Vomiting Verified 03/20/19 06:48 Home Medications Medication Instructions Recorded Confirmed Last Taken Type AtorvaSTATin [Lipitor] 20 mg PO QHS 02/19/18 02/19/18 02/19/18 History Carvedilol [Coreg] 6.25 mg PO BID 02/19/18 02/19/18 02/19/18 History Losartan [Cozaar] 50 mg PO QDAY 02/19/18 02/19/18 02/19/18 History Triamter/Hctz 37.5-25 mg 1 tab PO QDAY 02/19/18 02/19/18 02/19/18 History [Maxzide-25] Benzonatate [Tessalon Perles] 100 mg PO Q8HR #14 capsule 03/03/19 Unknown Rx Ondansetron [Zofran ODT TAB] 8 mg PO Q12HR #10 tab.rapdis 03/03/19 Unknown Rx ALBUTEROL Inhaler(NF) [VENTOLIN 2 puff IH Q4H #1 inha 03/13/19 Unknown Rx Inhaler(NF)] Azithromycin [Zithromax Z-DAREN] 250 mg PO DAILY #6 tab 03/13/19 Unknown Rx Benzonatate [Tessalon Perles] 100 mg PO Q8HR #30 capsule 03/13/19 Unknown Rx predniSONE [Deltasone] 40 mg PO QDAY 5 Days #10 tab 03/13/19 Unknown Rx Active Meds: Active Medications Albuterol (Proair) 2 puff IH Q4H ELZA Atorvastatin Calcium (Lipitor) 20 mg PO QHS [facility] Carvedilol (Coreg) 6.25 mg PO BID [facility] Losartan Potassium (Cozaar) 50 mg PO QDAY [facility] Triamterene/HCTZ (Maxzide-25) 1 each PO QDAY [facility] Review of Systems Constitutional: weakness, malaise, no weight loss, no weight gain, no fever Ears, nose, mouth and throat: no nasal congestion, no nasal discharge Cardiovascular: chest pain, no orthopnea, no palpitations, no shortness of breath Respiratory: no cough, no shortness of breath Gastrointestinal: no abdominal pain, no nausea, no vomiting Genitourinary Male: no dysuria, no hematuria Musculoskeletal: no neck stiffness, no neck pain Integumentary: no rash, no lesions Neurological: no paralysis, no weakness, no seizures Psychiatric: no anxiety, no memory loss Endocrine: no cold intolerance, no heat intolerance Hematologic/Lymphatic: no easy bruising, no easy bleeding Allergic/Immunologic: no urticaria, no allergic rhinitis Exam - Constitutional Vitals: Temp Pulse Resp BP Pulse Ox 97.9 F 101 H 19 127/58 88 03/20/19 06:56 03/20/19 10:01 03/20/19 10:01 03/20/19 10:30 03/20/19 10:30 General appearance: Present: no acute distress, well-nourished, obese (morbidly obese) - EENT Eyes: Present: PERRL, EOM intact - Neck Neck: Present: supple, normal ROM - Respiratory Respiratory effort: normal Respiratory: bilateral: diminished, negative: rales, rhonchi, wheezing - Cardiovascular Rhythm: regular Heart Sounds: Present: S1 & S2 - Extremities Extremities: no ischemia, No edema, abnormal (morbidly obese) Extremity abnormal: other (chronic skin changes) - Abdominal General gastrointestinal: Present: soft, non-tender, non-distended, normal bowel sounds - Integumentary Integumentary: Present: clear, warm - Musculoskeletal Musculoskeletal: strength equal bilaterally, generalized weakness - Psychiatric Psychiatric: appropriate mood/affect, cooperative - Neurologic Neurologic: CNII-XII intact, moves all extremities Results - Labs CBC & Chem 7: 03/20/19 03:51 03/20/19 03:51 Labs: Abnormal lab results 03/20/19 03/20/19 03/20/19 Range/Units 03:51 03:51 06:35 Seg Neutrophils % 71.3 H (40.0-70.0) % Seg Neutrophils # 7.8 H (1.8-7.7) K/mm3 BUN 24 H (9-20) mg/dL Creatinine 1.9 H (0.8-1.5) mg/dL Glucose 167 H (75-100) mg/dL Total Creatine Kinase 622 H (55-170) units/L CK-MB (CK-2) 4.6 H (0.0-4.0) ng/mL Assessment and Plan --Chest pain, rule out acute coronary syndrome; Continue aspirin and beta blockers Zia inhibitors nitrates and statins Serial cardiac enzymes and EKG, stress test to rule out reversible ischemia --Hypertension; moderate control Resume home antihypertensives and when necessary medications --Dyslipidemia; continue statin --Acute on chronic kidney disease stage III; due to vasomotor nephropathy Gentle hydration closely monitor renal function and avoid nephrotoxins --Ongoing tobacco use; smoking cessation counseling Nicotine patch as needed --Morbid obesity; BMI 61, advised weight reduction when medically stable --DVT prophylaxis; Lovenox We downgraded to medical floor with remote lease out man patient closely and adjust management as needed Consider cardiology evaluation if needed Plan of care is reviewed with the patient and his nurse Spent 55 minutes coordinating this admission
[2019-03-20] MEDS ORDERED: PROVENTIL IH PRN (10:56)
[2019-03-20] MEDS ORDERED: PROAIR IH SCH (11:00)
[2019-03-20] MEDS: COREG PO SCH ×2 (11:15→22:51)
[2019-03-20] MEDS ORDERED: COREG ONE (11:18)
[2019-03-20] MEDS ORDERED: NITROSTAT SL PRN (15:44)
[2019-03-20] MEDS ORDERED: MORPHINE IV PRN (15:46)
[2019-03-20] MEDS ORDERED: ULTRAM PO PRN (15:48)
[2019-03-20] MEDS ORDERED: BENADRYL PO PRN (20:58)
[2019-03-20] MEDS: COLACE PO SCH (22:50)
[2019-03-20] MEDS: PEPCID PO SCH (22:50)
[2019-03-20] MEDS: NACL 0.9% 1000 ML 1,000 ML IV SCH (23:55)
[2019-03-20] MEDS: ROCEPHIN/NS 1 GM/50 ML 1 GM/50 ML BAG IV SCH (23:56)
[2019-03-21 08:09] LABS: BUN/Creatinine Ratio 14; Blood Urea Nitrogen 20 mg/dL (9-20); Calcium 8.7 mg/dL (8.4-10.2); Hemolysis Index 2
[2019-03-21] MEDS: HABITROL TD SCH (10:08)
[2019-03-21] MEDS: COLACE PO SCH ×2 (10:09→21:37)
[2019-03-21] MEDS: COREG PO SCH ×2 (10:09→21:34)
[2019-03-21] MEDS: PEPCID PO SCH ×2 (10:09→21:38)
[2019-03-21] MEDS: MAXZIDE-25 PO SCH (10:09)
[2019-03-21] MEDS: LASIX IV SCH (10:10)
[2019-03-21] MEDS: NACL 0.9% 1000 ML 1,000 ML IV SCH (10:22)
[2019-03-21] MEDS: COZAAR PO SCH (12:01)
--- NOTE | 2019-03-21 16:24 | Progress Note ---
Assessment and Plan Assessment and plan: --Chest pain, rule out acute coronary syndrome; Continue aspirin and beta blockers Zia inhibitors nitrates and statins Serial cardiac enzymes and EKG, stress test to rule out reversible ischemia --Gastroesophageal reflux disease; Protonix --Hypertension; moderate control Resume home antihypertensives and when necessary medications --Dyslipidemia; continue statin --Acute on chronic kidney disease stage III; due to vasomotor nephropathy Gentle hydration closely monitor renal function and avoid nephrotoxins --Ongoing tobacco use; smoking cessation counseling Nicotine patch as needed --Morbid obesity; BMI 61, advised weight reduction when medically stable --DVT prophylaxis; Lovenox Monitor the patient closely and adjust management as needed Follow stress test tomorrow if negative and patient is stable may be discharged home Consider cardiology evaluation if stress test is abnormal Plan of care discussed with the patient and his nurse History Interval history: Patient seen and examined medical records reviewed Admitted with atypical chest pain Patient's symptoms significantly improved Stress test scheduled for tomorrow Vital signs noted Hospitalist Physical - Constitutional Vitals: Temp Pulse Resp BP Pulse Ox 97.4 F L 94 H 28 H 133/86 94 03/21/19 14:35 03/21/19 14:35 03/21/19 14:35 03/21/19 14:35 03/21/19 14:35 General appearance: Present: no acute distress, well-nourished, obese (morbidly obese) - EENT Eyes: Present: PERRL, EOM intact - Neck Neck: Present: supple, normal ROM - Respiratory Respiratory effort: normal Respiratory: bilateral: diminished, negative: rales, rhonchi, wheezing - Cardiovascular Rhythm: regular Heart Sounds: Present: S1 & S2 - Extremities Extremities: no ischemia, No edema - Abdominal General gastrointestinal: soft, non-tender, non-distended, normal bowel sounds - Integumentary Integumentary: Present: clear, warm - Psychiatric Psychiatric: appropriate mood/affect - Neurologic Neurologic: CNII-XII intact, moves all extremities Results - Labs CBC & Chem 7: 03/20/19 03:51 03/21/19 06:19 Labs: Laboratory Last Values WBC 11.0 K/mm3 (4.5-11.0) 03/20/19 03:51 RBC 4.69 M/mm3 (3.65-5.03) 03/20/19 03:51 Hgb 13.9 gm/dl (11.8-15.2) 03/20/19 03:51 Hct 42.6 % (35.5-45.6) 03/20/19 03:51 MCV 91 fl (84-94) 03/20/19 03:51 MCH 30 pg (28-32) 03/20/19 03:51 MCHC 33 % (32-34) 03/20/19 03:51 RDW 14.9 % (13.2-15.2) 03/20/19 03:51 Plt Count 296 K/mm3 (140-440) 03/20/19 03:51 Lymph % (Auto) 20.1 % (13.4-35.0) 03/20/19 03:51 [place] % (Auto) 7.3 % (0.0-7.3) 03/20/19 03:51 Eos % (Auto) 0.8 % (0.0-4.3) 03/20/19 03:51 Baso % (Auto) 0.5 % (0.0-1.8) 03/20/19 03:51 Lymph # 2.2 K/mm3 (1.2-5.4) 03/20/19 03:51 [place] # 0.8 K/mm3 (0.0-0.8) 03/20/19 03:51 Eos # 0.1 K/mm3 (0.0-0.4) 03/20/19 03:51 Baso # 0.1 K/mm3 (0.0-0.1) 03/20/19 03:51 Seg Neutrophils % 71.3 % (40.0-70.0) H 03/20/19 03:51 Seg Neutrophils # 7.8 K/mm3 (1.8-7.7) H 03/20/19 03:51 D-Dimer 136.45 ng/mlDDU (0-234) 03/20/19 05:05 Sodium 141 mmol/L (137-145) 03/21/19 06:19 Potassium 4.4 mmol/L (3.6-5.0) 03/21/19 06:19 Chloride 103.0 mmol/L (98-107) 03/21/19 06:19 Carbon Dioxide 28 mmol/L (22-30) 03/21/19 06:19 Anion Gap 14 mmol/L 03/21/19 06:19 BUN 20 mg/dL (9-20) 03/21/19 06:19 Creatinine 1.4 mg/dL (0.8-1.5) 03/21/19 06:19 Estimated GFR > 60 ml/min 03/21/19 06:19 BUN/Creatinine Ratio 14 % 03/21/19 06:19 Glucose 133 mg/dL (75-100) H 03/21/19 06:19 POC Glucose 112 (70-105) H 03/20/19 17:21 Calcium 8.7 mg/dL (8.4-10.2) 03/21/19 06:19 Total Creatine Kinase 503 units/L (55-170) H 03/21/19 06:19 CK-MB (CK-2) 4.6 ng/mL (0.0-4.0) H 03/20/19 06:35 CK-MB (CK-2) Rel Index 0.7 (0-4) 03/20/19 06:35 Troponin T < 0.010 ng/mL (0.00-0.029) 03/20/19 09:25 NT-Pro-B Natriuret Pep 15.88 pg/mL (0-450) 03/20/19 05:05 Urine Color Straw (Yellow) 03/20/19 09:45 Urine Turbidity Clear (Clear) 03/20/19 09:45 Urine pH 6.0 (5.0-7.0) 03/20/19 09:45 Ur Specific [place] 1.006 (1.003-1.030) 03/20/19 09:45 Urine Protein <15 mg/dl mg/dL (Negative) 03/20/19 09:45 Urine Glucose (UA) Neg mg/dL (Negative) 03/20/19 09:45 Urine Ketones Neg mg/dL (Negative) 03/20/19 09:45 Urine Blood Neg (Negative) 03/20/19 09:45 Urine Nitrite Neg (Negative) 03/20/19 09:45 Urine Bilirubin Neg (Negative) 03/20/19 09:45 Urine Urobilinogen < 2.0 mg/dL (<2.0) 03/20/19 09:45 Ur Leukocyte Esterase Neg (Negative) 03/20/19 09:45 Urine WBC (Auto) < 1.0 /HPF (0.0-6.0) 03/20/19 09:45 Urine RBC (Auto) 1.0 /HPF (0.0-6.0) 03/20/19 09:45 Urine Bacteria (Auto) 1+ /HPF (Negative) 03/20/19 09:45 Urine Opiates Screen Presumptive negative 03/20/19 09:45 Urine Methadone Screen Presumptive negative 03/20/19 09:45 Ur Barbiturates Screen Presumptive negative 03/20/19 09:45 Ur Phencyclidine Scrn Presumptive negative 03/20/19 09:45 Ur Amphetamines Screen Presumptive negative 03/20/19 09:45 U Benzodiazepines Scrn Presumptive negative 03/20/19 09:45 Urine Cocaine Screen Presumptive negative 03/20/19 09:45 U Marijuana (THC) Screen Presumptive negative 03/20/19 09:45 Drugs of Abuse Note Disclamer 03/20/19 09:45 Active Medications - Current Medications Current Medications: Generic Name Dose Route Start Last Admin Trade Name Freq PRN Reason Stop Dose Admin Albuterol 2.5 mg 03/20/19 10:56 Proventil IH Q4H PRN Shortness Of Breath Atorvastatin Calcium 20 mg 03/20/19 22:00 03/20/19 22:50 Lipitor PO 20 mg QHS ELZA Administration Carvedilol 6.25 mg 03/20/19 11:00 03/21/19 10:09 Coreg PO 6.25 mg BID ELZA Administration Diphenhydramine HCl 25 mg 03/20/19 20:58 Benadryl PO Q6H PRN Itching Docusate Sodium 100 mg 03/20/19 22:00 03/21/19 10:09 Colace PO 100 mg BID ELZA Administration Famotidine 20 mg 03/20/19 22:00 03/21/19 10:09 Pepcid PO 20 mg BID ELZA Administration Furosemide 40 mg 03/21/19 10:00 03/21/19 10:10 Lasix IV 40 mg QDAY ELZA Administration Sodium Chloride 1,000 mls @ 100 mls/hr 03/20/19 12:00 03/21/19 10:22 Nacl 0.9% 1000 Ml IV 100 mls/hr DIRECT ELZA Administration Ceftriaxone Sodium 1 gm in 50 mls @ 100 mls/hr 03/20/19 22:00 03/20/19 23:56 Rocephin/Ns 1 Gm/50 Ml IV 100 mls/hr Q24H ELZA Administration Protocol Losartan Potassium 50 mg 03/21/19 11:00 03/21/19 12:01 Cozaar PO 50 mg QDAY ELZA Administration Morphine Sulfate 2 mg 03/20/19 15:46 03/21/19 12:00 Morphine IV 2 mg Q6H PRN Administration Pain, Moderate (4-6) Nicotine 21 mg 03/21/19 10:00 03/21/19 10:08 Habitrol TD 21 mg QDAY ELZA Administration Nitroglycerin 0.4 mg 03/20/19 15:44 Nitrostat SL .Q5MIN PRN Chest Pain Tramadol HCl 25 mg 03/20/19 15:48 03/20/19 19:49 Ultram PO 25 mg Q4H PRN Administration Pain, Moderate (4-6) Triamterene/HCTZ 1 each 03/21/19 11:00 03/21/19 10:09 Maxzide-25 PO 1 each QDAY ELZA Administration
[2019-03-21] MEDS: ROCEPHIN/NS 1 GM/50 ML 1 GM/50 ML BAG IV SCH (22:44)
[2019-03-22 05:43] VITALS: BP 130/81
[2019-03-22 08:04] LABS: BUN/Creatinine Ratio 14; Blood Urea Nitrogen 19 mg/dL (9-20); Calcium 8.8 mg/dL (8.4-10.2); Hemolysis Index 3
[2019-03-22] MEDS: COZAAR PO SCH (10:06)
[2019-03-22] MEDS: COLACE PO SCH (10:06)
[2019-03-22] MEDS: PEPCID PO SCH (10:06)
[2019-03-22] MEDS: COREG PO SCH (10:06)
[2019-03-22] MEDS: HABITROL TD SCH (10:06)
[2019-03-22] MEDS: MAXZIDE-25 PO SCH (10:06)
[2019-03-22] MEDS: LASIX IV SCH (10:07)
--- NOTE | 2019-03-22 11:08 | Discharge Summary ---
Providers - Providers Date of Admission: 03/20/19 09:37 Date of discharge: 03/22/19 Attending physician: LEIGHA BLANCO [facility] Reason for admission: chest pain , Urinary tract infection Condition: Stable Pertinent studies: Chest x-ray and mild vascular congestion no consolidation or effusion seen; Hospital course: 48-year-old morbidly with his -English male patient with significant past medical history of hypertension Dyslipidemia, morbid obesity ongoing tobacco was admitted through emergency room with history of intermittent chest pain for 2 weeks. Patient had negative stress test 3 years ago .Symptomatically managed.Tried to schedule for stresstest, however due to his morbid obesity,equipment not available to accomodate the patient to obtain stress test. Patients medications optimised,advised to quit tobacco use and advised weight reduction.Also advised to see bariatric surgeon for evaluation for weight reduction program when medically stable. Today pt is comfortable,no new complaints,vital signs stable.Physical exam is unremarkable. Patient is also advised to see music internship for further evaln and management. Patient is stable at discharge Discharge Diagnosis: --Chest pain, rule out acute coronary syndrome; Continue aspirin and beta blockers Zia inhibitors nitrates and statins Serial cardiac enzymes and EKG, stress test to rule out reversible ischemia --Gastroesophageal reflux disease; Protonix --Hypertension; moderate control Resume home antihypertensives and when necessary medications --Dyslipidemia; continue statin --Acute on chronic kidney disease stage III; due to vasomotor nephropathy Gentle hydration closely monitor renal function and avoid nephrotoxins --Urinary tract infection :received IV antibiotics,discharge on oral antibiotic --Ongoing tobacco use; smoking cessation counseling Nicotine patch as needed --Morbid obesity; BMI 61, advised weight reduction when medically stable --DVT prophylaxis; Lovenox Stable at discharge Disposition: [id number] HOME UNDER HOME [facility] Time spent for discharge: 32 min Core Measure Documentation - Palliative Care Palliative Care/ Comfort Measures: Not Applicable - Core Measures Any of the following diagnoses?: none Exam - Constitutional Vitals: Temp Pulse Resp BP Pulse Ox 97.7 F 94 H 20 130/81 98 03/22/19 05:17 03/22/19 05:17 03/22/19 05:17 03/22/19 05:17 03/22/19 05:17 General appearance: Present: no acute distress, well-nourished - EENT Eyes: Present: PERRL, EOM intact - Neck Neck: Present: supple, normal ROM - Respiratory Respiratory effort: normal Respiratory: bilateral: diminished, negative: rales, rhonchi, wheezing - Cardiovascular Rhythm: regular Heart Sounds: Present: S1 & S2 - Extremities Extremities: no ischemia, No edema - Abdominal General gastrointestinal: Present: soft, non-tender, non-distended, normal bowel sounds - Integumentary Integumentary: Present: clear, warm - Musculoskeletal Musculoskeletal: strength equal bilaterally - Psychiatric Psychiatric: appropriate mood/affect, cooperative - Neurologic Neurologic: CNII-XII intact, moves all extremities Plan Activity: no restrictions Diet: other (cardiac diet) Special Instructions: smoking cessation Additional Instructions: Advise exercise and weight reduction as tolerated. Advise smoking cessation, nicotine patch as needed. Advised to follow [facility] 3- 4 days Follow up with: JUAN MANUEL WOO MD [Primary Care Provider] - 3-5 Days Prescriptions: Nicotine [Habitrol] 21 mg TD QDAY #30 patch cephALEXin [Keflex] 500 mg PO Q12HR #10 cap Furosemide [Lasix] 20 mg PO QDAY #30 tablet Famotidine [Pepcid] 20 mg PO BID #30 tablet
== END 2019-03-22 12:30 | disposition home health service (06) | DRG 683 ==
LOC: ED 03:28 → 4A 09:37 → 3A 15:36
PROVIDERS: ADMIT Internal Medicine; ATTEND Internal Medicine
DX: N17.0 Acute kidney failure with tubular necrosis (principal); I24.9 Acute ischemic heart disease, unspecified; Z68.44 Body mass index [BMI] 60.0-69.9, adult; I12.9 Hypertensive chronic kidney disease with stage 1 through stage 4 chronic kidney disease, or unspecified chronic kidney disease; N18.3 Chronic kidney disease, stage 3 (moderate); H54.8 Legal blindness, as defined in USA; E78.00 Pure hypercholesterolemia, unspecified; E78.5 Hyperlipidemia, unspecified; K21.9 Gastro-esophageal reflux disease without esophagitis; F17.200 Nicotine dependence, unspecified, uncomplicated; E66.01 Morbid (severe) obesity due to excess calories; Z79.51 Long term (current) use of inhaled steroids; Z79.899 Other long term (current) drug therapy; Z88.6 Allergy status to analgesic agent; Z82.49 Family history of ischemic heart disease and other diseases of the circulatory system; Z71.6 Tobacco abuse counseling; Z71.3 Dietary counseling and surveillance
CPT/HCPCS: 36415; 71045; 80048; 80307; 81001; 82550; 82553; 82962; 83880; 84484; 85025; 85379; 87086; 93005; 93010; G0378; A9270-GY; J0696; J1940; J2270; J7030

== ENCOUNTER 2019-04-30 21:40 | Emergency (ER) | payer MEDICAID ==
[2019-04-30 21:48] VITALS: BP 145/84
--- NOTE | 2019-04-30 21:50 | Event Note ---
ED Screening Note ED Screening Note: pt is blind pt presents for right sided rib pain that began this morning states worse with movement no fall or injury no SOB no CP PMHx HTN, GERD, borderline DM + occ smoker + occ drinker no drug use This initial assessment/diagnostic orders/clinical plan/treatment(s) is/are subject to change based on patients health status, clinical progression and re- assessment by fellow clinical providers in the ED. Further treatment and workup at subsequent clinical providers discretion. Patient/guardian urged not to elope from the ED as their condition may be serious if not clinically assessed and managed. Initial orders include: XR ribs with chest
--- NOTE | 2019-04-30 23:12 | XRay Report ---
PROCEDURE: XR RIBS UNI W PA CHEST 3+V RT HISTORY: right sided rib pain FINDINGS: PA and oblique views of the right ribs were acquired. No fracture is seen in the right ribs . There is no pneumothorax. IMPRESSION: No fracture is seen in the right ribs This document is electronically signed by Justin Johnson MD., April 30 2019 11:10:23 PM ET
--- NOTE | 2019-05-01 00:47 | Emergency Department Report ---
ED General Adult HPI - General Chief complaint: Pain General Stated complaint: L RIB PAIN Time Seen by Provider: 04/30/19 21:48 Source: patient, EMS Mode of arrival: Ambulatory Limitations: Other - History of Present Illness Initial comments: Patient 48-year-old -[place] male hx of hypertension and obesity presents with right sided chest wall pain times this morning and states this exacerbated by cough movement reaching there is no shortness of breath there's no wheezing no dizziness no nausea vomiting no back pain no diaphoresis patient denies hemoptysis there isURI symptoms her cough is productive clear there is no wheezing no sore throat no ear pain patient endorses seasonal allergies Onset/Timin -: days(s) Location: chest (right chest wall ) Radiation: non-radiation Severity scale (0 -10): 5 Quality: sharp Consistency: intermittent Improves with: rest Worsens with: other (cough) Associated Symptoms: chest pain (right side chest wall pain ), cough. denies: diaphoresis, fever/chills, headaches, nausea/vomiting, shortness of breath, weakness Treatments Prior to Arrival: none - Related Data Home Medications Medication Instructions Recorded Confirmed Last Taken AtorvaSTATin [Lipitor] 20 mg PO QHS 02/19/18 02/19/18 02/19/18 Carvedilol [Coreg] 6.25 mg PO BID 02/19/18 02/19/18 02/19/18 Losartan [Cozaar] 50 mg PO QDAY 02/19/18 02/19/18 02/19/18 Triamter/Hctz 37.5-25 mg 1 tab PO QDAY 02/19/18 02/19/18 02/19/18 [Maxzide-25] Previous Rx's Medication Instructions Recorded Last Taken Type Benzonatate [Tessalon Perles] 100 mg PO Q8HR #14 capsule 03/03/19 Unknown Rx Ondansetron [Zofran ODT TAB] 8 mg PO Q12HR #10 tab.rapdis 03/03/19 Unknown Rx ALBUTEROL Inhaler(NF) [VENTOLIN 2 puff IH Q4H #1 inha 03/13/19 Unknown Rx Inhaler(NF)] Azithromycin [Zithromax Z-DAREN] 250 mg PO DAILY #6 tab 03/13/19 Unknown Rx Famotidine [Pepcid] 20 mg PO BID #30 tablet 03/22/19 Unknown Rx Furosemide [Lasix] 20 mg PO QDAY #30 tablet 03/22/19 Unknown Rx Nicotine [Habitrol] 21 mg TD QDAY #30 patch 03/22/19 Unknown Rx cephALEXin [Keflex] 500 mg PO Q12HR #10 cap 03/22/19 Unknown Rx Benzonatate [Tessalon Perles] 200 mg PO Q8HR PRN #30 capsule 05/01/19 Unknown Rx Allergies Allergy/AdvReac Type Severity Reaction Status Date / Time acetaminophen [From Tylenol] Allergy Vomiting Verified 03/20/19 06:48 ibuprofen [From Motrin] Allergy Vomiting Verified 03/20/19 06:48 ED Review of Systems ROS: Stated complaint: L RIB PAIN Other details as noted in HPI Constitutional: denies: chills, fever Eyes: denies: eye pain, eye discharge, vision change ENT: congestion. denies: ear pain, throat pain Respiratory: cough. denies: shortness of breath, wheezing Cardiovascular: chest pain (right lateral chest wall pain ). denies: palpitations, dyspnea on exertion, paroxysmal nocturnal dyspnea Endocrine: no symptoms reported Gastrointestinal: denies: abdominal pain, nausea, vomiting, diarrhea Genitourinary: denies: urgency, dysuria Musculoskeletal: denies: back pain, joint swelling, arthralgia, myalgia Skin: denies: rash, lesions Neurological: denies: headache, weakness, numbness, paresthesias, confusion, vertigo Psychiatric: denies: anxiety, depression Hematological/Lymphatic: denies: easy bleeding, easy bruising ED Past Medical Hx - Past Medical History Previous Medical History?: Yes Hx Hypertension: Yes Hx Congestive Heart Failure: No Hx Diabetes: No Hx Asthma: No Hx COPD: No Hx HIV: No Additional medical history: legally blind, MORBID OBESITY, High Cholesterol - Surgical History Past Surgical History?: No - Social History Smoking Status: Current Some Day Smoker Substance Use Type: None - Medications Home Medications: Home Medications Medication Instructions Recorded Confirmed Last Taken Type AtorvaSTATin [Lipitor] 20 mg PO QHS 02/19/18 02/19/18 02/19/18 History Carvedilol [Coreg] 6.25 mg PO BID 02/19/18 02/19/18 02/19/18 History Losartan [Cozaar] 50 mg PO QDAY 02/19/18 02/19/18 02/19/18 History Triamter/Hctz 37.5-25 mg 1 tab PO QDAY 02/19/18 02/19/18 02/19/18 History [Maxzide-25] Benzonatate [Tessalon Perles] 100 mg PO Q8HR #14 capsule 03/03/19 Unknown Rx Ondansetron [Zofran ODT TAB] 8 mg PO Q12HR #10 tab.rapdis 03/03/19 Unknown Rx ALBUTEROL Inhaler(NF) [VENTOLIN 2 puff IH Q4H #1 inha 03/13/19 Unknown Rx Inhaler(NF)] Azithromycin [Zithromax Z-DAREN] 250 mg PO DAILY #6 tab 03/13/19 Unknown Rx Famotidine [Pepcid] 20 mg PO BID #30 tablet 03/22/19 Unknown Rx Furosemide [Lasix] 20 mg PO QDAY #30 tablet 03/22/19 Unknown Rx Nicotine [Habitrol] 21 mg TD QDAY #30 patch 03/22/19 Unknown Rx cephALEXin [Keflex] 500 mg PO Q12HR #10 cap 03/22/19 Unknown Rx Benzonatate [Tessalon Perles] 200 mg PO Q8HR PRN #30 capsule 05/01/19 Unknown Rx ED Physical Exam - General Limitations: Other General appearance: alert, in no apparent distress - Head Head exam: Present: atraumatic, normocephalic - Eye Eye exam: Present: normal appearance, PERRL, EOMI Pupils: Present: normal accommodation - ENT ENT exam: Present: normal orophraynx, mucous membranes moist, TM's normal bilaterally, normal external ear exam, other (post nasal drip clear ) - Neck Neck exam: Present: normal inspection, full ROM. Absent: tenderness, meningismus, lymphadenopathy, thyromegaly - Respiratory Respiratory exam: Present: normal lung sounds bilaterally, chest wall tenderness (right lateral chest wall tenderness to palpation no crepitus no stepoff no ecchymosis ). Absent: respiratory distress, wheezes, stridor, prolonged expiratory - Cardiovascular Cardiovascular Exam: Present: regular rate, normal rhythm, normal heart sounds. Absent: systolic murmur, diastolic murmur, rubs, gallop - GI/Abdominal GI/Abdominal exam: Present: soft, normal bowel sounds. Absent: distended, tenderness, guarding, rebound, rigid, bruit, hernia - Rectal Rectal exam: Present: deferred - Extremities Exam Extremities exam: Present: normal inspection, full ROM, normal capillary refill. Absent: tenderness, pedal edema, calf tenderness - Back Exam Back exam: Present: normal inspection, full ROM. Absent: tenderness, CVA tenderness (R), CVA tenderness (L), muscle spasm, paraspinal tenderness, vertebral tenderness, rash noted - Neurological Exam Neurological exam: Present: alert, oriented X3, CN II-XII intact, normal gait, reflexes normal. Absent: motor sensory deficit - Psychiatric Psychiatric exam: Present: normal affect, normal mood - Skin Skin exam: Present: warm, dry, intact, normal color. Absent: rash ED Course Vital Signs 04/30/19 21:47 Temperature 97.8 F Pulse Rate 95 H Respiratory 18 Rate Blood Pressure 145/84 O2 Sat by Pulse 95 Oximetry ED Medical Decision Making - Radiology Data Radiology results: report reviewed, image reviewed Ordering Physician: CODEY PETERSON Date of Service: 04/30/19 Procedure(s): XR ribs UNI w PA Chest 3+V RT Accession Number(s): [id number] cc: CODEY PETERSON Fluoro Time In Minutes: PROCEDURE: XR RIBS UNI W PA CHEST 3+V RT HISTORY: right sided rib pain FINDINGS: PA and oblique views of the right ribs were acquired. No fracture is seen in the right ribs. There is no pneumothorax. IMPRESSION: No fracture is seen in the right ribs This document is electronically signed by Justin Johnson MD., April 30 2019 11:10:23 PM ET Transcribed By: LEBRON Dictated By: JUSTIN JOHNSON MD Electronically Authenticated By: JUSTIN JOHNSON MD Signed Date/Time: 04/30/192311 DD/ 34 TD/TT: 04/30/192234 - Medical Decision Making This is chest wall pain , cxr: normal no fracture no infiltrates no opacities, no sob no wheezing there has been no fall injury or trauma, plan: naproxen prn pain follow up with pcp in 2-3 days pt verbalized agreement and understanding of discharge plan. Critical care attestation.: If time is entered above; I have spent that time in minutes in the direct care of this critically ill patient, excluding procedure time. ED Disposition Clinical Impression: Costochondritis Disposition: - TO HOME OR SELFCARE Is pt being admited?: No Does the pt Need Aspirin: No Condition: Stable Instructions: Costochondritis (ED) Prescriptions: Benzonatate [Tessalon Perles] 200 mg PO Q8HR PRN #30 capsule PRN Reason: Cough Referrals: RAINE FIELDS [Other] - 3-5 Days Forms: Work/School Release Form(ED) Time of Disposition: 00:57
== END 2019-05-01 03:19 | disposition home or self-care (01) ==
LOC: ED 21:40
DX: M94.0 Chondrocostal junction syndrome [Tietze] (principal); I10 Essential (primary) hypertension; E66.09 Other obesity due to excess calories; E78.00 Pure hypercholesterolemia, unspecified; F17.200 Nicotine dependence, unspecified, uncomplicated
CPT/HCPCS: 99283